=== PATIENT | female | born 2000 | race Caucasian/White ===

== ENCOUNTER 2020-09-28 12:19 | Day surgery (SDC) | payer OTHER ==
[~2020-09-28] VITALS: Ht 157.5 cm; Wt 62.8 kg
--- NOTE | 2020-09-28 12:55 | NUR ---
WELL TREATMENT OFFSIDER: GIAN COLLECTED AND SENT TO LAB.
[2020-09-28 12:57] LABS: BASOPHILS % (AUTO) 1 % (0-1); EOSINOPHILS % (AUTO) 1 % (1-7); LYMPHOCYTES % (AUTO) 22 % (22-44); MEAN CORPUSCULAR HEMOGLOBIN 33.7 pg (27.0-34.8); MEAN CORPUSCULAR HGB CONC 34.5 g/dL (32.4-35.8); MEAN PLATELET VOLUME 8.3 fL (7.4-10.4); MONOCYTES % (AUTO) 10 % (2-9); NEUTROPHILS % (AUTO) 66 % (42-75); PLATELET COUNT 261 x10^3/uL (130-400); RED CELL DISTRIBUTION WIDTH 13.4 % (9.6-15.2)
[2020-09-28] MEDS ORDERED: SODIUM CHLORIDE FLUSH 10ML SYR IVF ONE (13:00)
[2020-09-28 13:01] LABS: MD NO
[2020-09-28 13:04] LABS: ANION GAP 4 mmol/L (5-15); CALCIUM 9.7 mg/dL (8.5-10.1); CHLORIDE 107 mmol/L (98-107); CREATININE 0.77 mg/dL (0.55-1.02)
[2020-09-28 13:09] LABS: ALANINE AMINOTRANSFERASE 50 U/L (12-78); ALBUMIN 4.5 g/dL (3.4-5.0); ALKALINE PHOSPHATASE 88 U/L (45-117); BILIRUBIN,TOTAL 0.7 mg/dL (0.2-1.0); TOTAL PROTEIN 8.2 g/dL (6.4-8.2)
[2020-09-28 13:12] LABS: MICROSCOPIC INDICATED
[2020-09-28] MEDS ORDERED: OMNIPAQUE 350 MG/ML, 100ML BOTTLE ONE (14:34)
[2020-09-28] MEDS ORDERED: MORPHINE SULFATE 4 MG/ML, 1ML ONE (14:53)
[2020-09-28] MEDS ORDERED: ONDANSETRON 2MG/ML, 2ML ONE ×2 (14:53→16:50)
--- NOTE | 2020-09-28 14:55 | NUR ---
PT MEDICATED PER EMAR.
[2020-09-28] MEDS ORDERED: MORPHINE SULFATE 4 MG/ML, 1ML IVPush PRN (15:00)
[2020-09-28] MEDS ORDERED: ONDANSETRON 2MG/ML, 2ML IVPush ONE (15:00)
[2020-09-28] MEDS ORDERED: SERT100T PO (15:02)
[2020-09-28] MEDS ORDERED: BUPR-173 PO (15:02)
--- NOTE | 2020-09-28 15:15 | NUR ---
PT UPDATED ON POC FOR GEN SURG CONSULT. RESTING ON [employer] W/ CALL LIGHT IN REACH AND SIDE RAILS UPX2. RESP EVEN AND UNLABORED, ANGEL.
--- NOTE | 2020-09-28 15:27 | NUR ---
REPORT GIVEN TO SUE SAGE.
[2020-09-28 15:44] VITALS: BP 162/100
--- NOTE | 2020-09-28 15:52 | NUR ---
CEFOTAN ORDERED FROM PHARMACY.
[2020-09-28] MEDS ORDERED: SODIUM CHLORIDE 0.9% 1,000ML IVBOLUS ONE (16:00)
[2020-09-28] MEDS ORDERED: CEFOTETAN PMX 1GM/50ML 50 ML IVPB ONE (16:00)
[2020-09-28] MEDS ORDERED: BUPIVACAINE/PF 0.5% ONE (16:04)
[2020-09-28] MEDS ORDERED: EPINEPHRINE 1 MG/ML, 1ML ONE (16:05)
--- NOTE | 2020-09-28 16:05 | NUR ---
ERMD AT BEDSIDE TO DISCUSS POC, PATIENT MEDICATED PER eMAR.
--- NOTE | 2020-09-28 16:12 | NUR ---
COVID SWAB COLLECTED AND WALKED TO LAB.
--- NOTE | 2020-09-28 16:13 | NUR ---
REPORT GIVEN TO CHU DENTON IN PRE-OP FOR TRANSFER OF PATIENT CARE.
[2020-09-28] MEDS ORDERED: CHLORHEXIDINE 15 ML UDC ONE (16:17)
--- NOTE | 2020-09-28 16:23 | NUR ---
PATIENT TRANSFERRED IN STABLE CONDITION VIA GURNEY WITH OR STAFF TO OR FOR SURGERY.
[2020-09-28] MEDS ORDERED: BUPIVACAINE/PF 0.25% ONE (16:26)
[2020-09-28] MEDS ORDERED: ACETAMINOPHEN 325 MG TABLET PO PRN (16:30)
[2020-09-28] MEDS ORDERED: PROMETHAZINE 25 MG/ML, 1ML IVPush PRN (16:30)
[2020-09-28] MEDS ORDERED: HYDROmorphone 1 MG/ML, 1ML INJ IVPush PRN (16:30)
[2020-09-28] MEDS ORDERED: hydrALAzine 20 MG/ML, 1ML IV PRN (16:30)
[2020-09-28] MEDS ORDERED: ONDANSETRON 2MG/ML, 2ML IVPush PRN (16:30)
[2020-09-28] MEDS ORDERED: EPHEDRINE 50 MG/ML, 1ML IVPush PRN (16:30)
[2020-09-28] MEDS ORDERED: FENTANYL PF 100 MCG/2ML IV PRN (16:30)
[2020-09-28] MEDS ORDERED: OXYcodone 5 MG/5 ML ORAL.SOL UDC PO PRN (16:30)
[2020-09-28] MEDS ORDERED: LABETALOL 5MG/ML, 20ML IV PRN (16:30)
[2020-09-28] MEDS ORDERED: CEFOTETAN 2 GM ONE (16:50)
[2020-09-28] MEDS ORDERED: GLYCOPYRROLATE 0.2MG/1ML, 5ML ONE (16:50)
[2020-09-28] MEDS ORDERED: ROCURONIUM 10 MG/ML,10ML ONE (16:50)
[2020-09-28] MEDS ORDERED: NEOSTIGMINE 1 MG/ML, 10ML ONE (16:50)
[2020-09-28] MEDS ORDERED: DEXAMETHASONE 4 MG/ML, 1ML ONE (16:50)
[2020-09-28] MEDS ORDERED: SUGAMMADEX 200 MG/2 ML IVPush ONE (16:50)
[2020-09-28] MEDS ORDERED: PROPOFOL 10 MG/ML, 20ML ONE (16:50)
[2020-09-28] MEDS ORDERED: HYDR-2214 PO (17:13)
[2020-09-28] MEDS ORDERED: MEPERIDINE/PF 25MG/ML,1ML ONE (17:20)
[2020-09-28] MEDS ORDERED: MEPERIDINE/PF 25MG/0.5ML IVPush PRN (17:30)
== END 2020-09-28 19:00 | disposition home or self-care (01) ==
LOC: ED 15:31 → OUT 17:00 → ED 19:00
PROVIDERS: ATTEND Emergency Medicine
DX: K35.80 Unspecified acute appendicitis (principal); F32.9 Major depressive disorder, single episode, unspecified; Z20.822 Contact with and (suspected) exposure to COVID-19; Z79.899 Other long term (current) drug therapy; Z87.442 Personal history of urinary calculi
CPT/HCPCS: 36415; 44970; 74177; 80053; 81001; 84703; 85025; 87086; 87635; 88304; 96365; 96375; 99285; J0171; J1100; J2175; J2270; J2405; J2704; J2710; J7030; Q9967

== ENCOUNTER 2020-09-29 14:55 | Emergency (ER) | payer OTHER ==
[~2020-09-29] VITALS: Ht 157.5 cm; Wt 63.7 kg
[~2020-09-29 14:55] MED LIST: BUPR-173 PO; HYDR-2214 PO; SERT100T PO
--- NOTE | 2020-09-29 15:28 | NUR ---
PATIENT WALKED BACK FROM TRIAGE WITH CHIEF C/O POST-OP PAIN. PATIENT HAD APPENDECTOMY YESTERDAY, HAS BEEN ALTERNATING BETWEEN PRESCRIBED PAIN MEDICATION NORCO AND IBUPROFEN WITH NO RELIEF. PATIENT WAS ADVISED BY SURGEON'S OFFICE TO COME TO ED. 3 STAB SITES NOTED TO ABD, NO SIGNS OF INFECTION. PATIENT CONNECTED TO MONITOR, HR 110, OTHER VSS, CALL LIGHT WITHIN REACH.
[2020-09-29] MEDS ORDERED: SODIUM CHLORIDE FLUSH 10ML SYR IVF ONE (15:30)
[2020-09-29] MEDS ORDERED: SODIUM CHLORIDE 0.9% 1,000ML IVBOLUS ONE (15:30)
--- NOTE | 2020-09-29 15:37 | NUR ---
20 GAUGE IV STARTED RIGHT AC, BLOOD COLLECTED, LABELLED AND SENT TO LAB, [facility]REJO.
[2020-09-29] MEDS ORDERED: ONDANSETRON 2MG/ML, 2ML ONE (15:49)
[2020-09-29] MEDS ORDERED: HYDROmorphone 1 MG/ML, 1ML INJ ONE (15:49)
[2020-09-29 15:53] LABS: BASOPHILS % (AUTO) 0 % (0-1); EOSINOPHILS % (AUTO) 0 % (1-7); LYMPHOCYTES % (AUTO) 17 % (22-44); MEAN CORPUSCULAR HEMOGLOBIN 33.6 pg (27.0-34.8); MEAN CORPUSCULAR HGB CONC 34.2 g/dL (32.4-35.8); MEAN PLATELET VOLUME 8.5 fL (7.4-10.4); MONOCYTES % (AUTO) 10 % (2-9); NEUTROPHILS % (AUTO) 73 % (42-75); PLATELET COUNT 244 x10^3/uL (130-400); RED BLOOD COUNT 4.27 x10^6/uL (3.82-5.3); RED CELL DISTRIBUTION WIDTH 13.4 % (9.6-15.2)
--- NOTE | 2020-09-29 15:53 | NUR ---
PATIENT TO IMAGING.
[2020-09-29 15:56] LABS: ALANINE AMINOTRANSFERASE 49 U/L (12-78); ANION GAP 9 mmol/L (5-15); CALCIUM 9.3 mg/dL (8.5-10.1); CHLORIDE 109 mmol/L (98-107); CREATININE 0.93 mg/dL (0.55-1.02); MD NO
[2020-09-29] MEDS ORDERED: MORPHINE SULFATE 4 MG/ML, 1ML IVPush PRN (16:00)
[2020-09-29] MEDS ORDERED: ONDANSETRON 2MG/ML, 2ML IVPush ONE (16:00)
[2020-09-29 16:01] LABS: ALKALINE PHOSPHATASE 75 U/L (45-117); BILIRUBIN,TOTAL 0.4 mg/dL (0.2-1.0); TOTAL PROTEIN 7.5 g/dL (6.4-8.2)
--- NOTE | 2020-09-29 16:01 | NUR ---
PATIENT BACK FROM IMAGING, AMBULATED TO BATHROOM WITH STEADY GAIT FOR URINE SAMPLE.
[2020-09-29] MEDS: HYDROmorphone 2 MG/ML, 1ML IVPush ONE (16:07)
--- NOTE | 2020-09-29 16:15 | NUR ---
PATIENT MEDICATED PER eMAR, URINE COLLECTED AND SENT TO LAB, CONNECTED TO MONITOR, VSS, CALL LIGHT WITHIN REACH.
[2020-09-29 16:27] LABS: MICROSCOPIC AUTO
[2020-09-29] MEDS ORDERED: KETOROLAC 30 MG/1 ML ONE (16:38)
[2020-09-29] MEDS ORDERED: OXYcodone/APAP 5/325MG TABLET ONE (16:39)
[2020-09-29 16:44] VITALS: BP 109/75
--- NOTE | 2020-09-29 16:50 | NUR ---
IV removed with tip intact. Patient given discharge instructions and they have confirmed that they understand the instructions. Patient ambulatory with steady gait. NAD, all questions answered appropriately, denies additional needs at this time. No personal belongings left in room after discharge.
[2020-09-29] MEDS ORDERED: KETOROLAC 30 MG/1 ML IVPush ONE (17:00)
[2020-09-29] MEDS ORDERED: OXYcodone/APAP 5/325MG TABLET PO ONE (17:00)
== END 2020-09-29 16:51 | disposition home or self-care (01) ==
LOC: ED 16:40
DX: R10.31 Right lower quadrant pain (principal); G89.18 Other acute postprocedural pain; Z90.89 Acquired absence of other organs; F17.200 Nicotine dependence, unspecified, uncomplicated
CPT/HCPCS: 36415; 74021; 80053; 81001; 83690; 84703; 85025; 87086; 96361; 96374; 96375; 99284; J1170; J1885; J2405; J7030

== ENCOUNTER 2020-09-30 14:56 | Emergency (ER) | payer OTHER ==
[~2020-09-30 14:56] MED LIST changes: +DEXAMETHASONE 4 MG/ML, 5ML ONE; +FENTANYL PF 100 MCG/2ML ONE; +GLYCOPYRROLATE 0.2MG/1ML, 5ML ONE; +KETOROLAC 30 MG/1 ML ONE; +MIDAZOLAM 1 MG/ML, 2ML ONE; +NEOSTIGMINE 1 MG/ML, 10ML ONE; +ONDANSETRON 2MG/ML, 2ML ONE; +PROPOFOL 10 MG/ML, 20ML ONE; +ROCURONIUM 10MG/ML,5ML ONE; +SUCCINYLCHOLINE 20 MG/ML, 10ML ONE; +SUGAMMADEX 200 MG/2 ML IVPush ONE
[2020-09-30] MEDS ORDERED: ONDANSETRON 2MG/ML, 2ML IVPush ONE (15:30)
[2020-09-30] MEDS ORDERED: MORPHINE SULFATE 4 MG/ML, 1ML IVPush PRN (15:30)
[2020-09-30] MEDS ORDERED: SODIUM CHLORIDE FLUSH 10ML SYR IVF ONE (15:30)
[2020-09-30] MEDS ORDERED: SODIUM CHLORIDE 0.9% 1,000ML IVBOLUS ONE (15:30)
--- NOTE | 2020-09-30 15:42 | NUR ---
SPRAGGER: PT TO ROOM FROM LOBBY
[2020-09-30 15:48] LABS: BASOPHILS % (AUTO) 0 % (0-1); EOSINOPHILS % (AUTO) 1 % (1-7); LYMPHOCYTES % (AUTO) 12 % (22-44); MEAN CORPUSCULAR HEMOGLOBIN 33.2 pg (27.0-34.8); MEAN CORPUSCULAR HGB CONC 33.8 g/dL (32.4-35.8); MEAN PLATELET VOLUME 8.4 fL (7.4-10.4); MONOCYTES % (AUTO) 9 % (2-9); NEUTROPHILS % (AUTO) 78 % (42-75); PLATELET COUNT 264 x10^3/uL (130-400); RED BLOOD COUNT 4.46 x10^6/uL (3.82-5.3); RED CELL DISTRIBUTION WIDTH 13.6 % (9.6-15.2)
[2020-09-30 15:49] LABS: MD NO
[2020-09-30 16:00] LABS: ANION GAP 7 mmol/L (5-15); CALCIUM 9.3 mg/dL (8.5-10.1); CHLORIDE 109 mmol/L (98-107)
[2020-09-30 16:01] LABS: ALANINE AMINOTRANSFERASE 51 U/L (12-78); ALBUMIN 4.3 g/dL (3.4-5.0)
[2020-09-30 16:05] LABS: ALKALINE PHOSPHATASE 84 U/L (45-117); BILIRUBIN,TOTAL 0.5 mg/dL (0.2-1.0); TOTAL PROTEIN 7.8 g/dL (6.4-8.2)
[2020-09-30] MEDS ORDERED: PROMETHAZINE 25 MG/ML, 1ML IM ONE (16:30)
[2020-09-30] MEDS ORDERED: PROMETHAZINE 25 MG/ML, 1ML ONE (16:30)
[2020-09-30] MEDS ORDERED: MORPHINE SULFATE 4 MG/ML, 1ML ONE (16:30)
--- NOTE | 2020-09-30 16:38 | NUR ---
PT S/P APPY ON 09/28, CONTINUED N/V. SEEN HERE IN ED YESTERDAY FOR SAME. NO IMPROVEMENT. PIV STARTED AND IVF INFUSING W/O DIFFICULTY. PT MED NOTED FOR PAIN AND N/V. CALL LIGHT W/I REACH, VSS
[2020-09-30 17:19] LABS: MICROSCOPIC NOT IND
--- NOTE | 2020-09-30 17:37 | NUR ---
n/v seems to be ressolved. ice chips and water at bedisde. Pt instructed to "go slow". ALL TESTS RESULTED AND CHART UP FOR RECHECK. PT AWARE.
[2020-09-30] MEDS ORDERED: KETOROLAC 30 MG/1 ML IVPush ONE (18:00)
[2020-09-30] MEDS ORDERED: PLEASE ENTER HEIGHT AND WEIGHT MC SCH (18:00)
--- NOTE | 2020-09-30 18:00 | NUR ---
PT TOLLERATING PO FLUIDS.
[2020-09-30 18:30] VITALS: BP 141/89
--- NOTE | 2020-09-30 18:31 | NUR ---
Patient/Caregiver given discharge instructions and they have confirmed that they understand the instructions. Patient ambulatory with steady gait.
== END 2020-09-30 18:32 | disposition home or self-care (01) ==
LOC: ED 15:45
DX: R11.2 Nausea with vomiting, unspecified (principal); R10.9 Unspecified abdominal pain; Z90.89 Acquired absence of other organs
CPT/HCPCS: 36415; 80053; 81003; 84703; 85025; 96361; 96372; 96374; 99284; J0330; J1100; J1885; J2250; J2270; J2405; J2550; J2704; J2710; J3010; J7030

== ENCOUNTER 2020-10-04 20:39 | Emergency (ER) | payer OTHER ==
[~2020-10-04] VITALS: Ht 157.5 cm; Wt 65.0 kg
[~2020-10-04 20:39] MED LIST changes: -DEXAMETHASONE 4 MG/ML, 5ML ONE; -FENTANYL PF 100 MCG/2ML ONE; -GLYCOPYRROLATE 0.2MG/1ML, 5ML ONE; -KETOROLAC 30 MG/1 ML ONE; -MIDAZOLAM 1 MG/ML, 2ML ONE; -NEOSTIGMINE 1 MG/ML, 10ML ONE; -ONDANSETRON 2MG/ML, 2ML ONE; -PROPOFOL 10 MG/ML, 20ML ONE; -ROCURONIUM 10MG/ML,5ML ONE; -SUCCINYLCHOLINE 20 MG/ML, 10ML ONE; -SUGAMMADEX 200 MG/2 ML IVPush ONE
[2020-10-04] MEDS ORDERED: DIPH,PERTUSS(ACELL),TET VAC/PF 0.5 ML IM-VACC ONE ×2 (21:00→21:22)
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
[2020-10-04] MEDS ORDERED: HYDROmorphone 1 MG/ML, 1ML INJ ONE (21:22)
[2020-10-04] MEDS ORDERED: HYDROmorphone 1 MG/ML, 1ML INJ IM ONE (21:30)
[2020-10-04 21:48] LABS: BASOPHILS % (AUTO) 0 % (0-1); EOSINOPHILS % (AUTO) 0 % (1-7); LYMPHOCYTES % (AUTO) 15 % (22-44); MEAN CORPUSCULAR HEMOGLOBIN 33.3 pg (27.0-34.8); MEAN CORPUSCULAR HGB CONC 34.4 g/dL (32.4-35.8); MEAN PLATELET VOLUME 8.2 fL (7.4-10.4); MONOCYTES % (AUTO) 7 % (2-9); NEUTROPHILS % (AUTO) 78 % (42-75); PLATELET COUNT 240 x10^3/uL (130-400); RED BLOOD COUNT 4.29 x10^6/uL (3.82-5.3); RED CELL DISTRIBUTION WIDTH 13.3 % (9.6-15.2)
[2020-10-04 21:57] LABS: ALANINE AMINOTRANSFERASE 36 U/L (12-78); ALBUMIN 3.8 g/dL (3.4-5.0); ANION GAP 7 mmol/L (5-15); CALCIUM 9.1 mg/dL (8.5-10.1); CHLORIDE 105 mmol/L (98-107); CREATININE 0.79 mg/dL (0.55-1.02)
[2020-10-04 22:02] LABS: ALKALINE PHOSPHATASE 78 U/L (45-117); BILIRUBIN,TOTAL 0.3 mg/dL (0.2-1.0); TOTAL PROTEIN 7.3 g/dL (6.4-8.2)
[2020-10-04 22:46] VITALS: BP 135/95
== END 2020-10-04 22:57 | disposition home or self-care (01) ==
LOC: ED 21:18
DX: S41.151A Open bite of right upper arm, initial encounter (principal); R10.32 Left lower quadrant pain; R00.0 Tachycardia, unspecified; Z90.89 Acquired absence of other organs; Y04.0XXA Assault by unarmed brawl or fight, initial encounter; Y93.89 Activity, other specified; Y92.89 Other specified places as the place of occurrence of the external cause; Y99.8 Other external cause status
CPT/HCPCS: 36415; 80053; 83690; 84703; 85025; 90471; 90715; 96372; 99284; J1170

== ENCOUNTER 2020-12-21 11:39 | Emergency (ER) | payer OTHER ==
[~2020-12-21] VITALS: Ht 157.5 cm; Wt 61.7 kg
[2020-12-21 13:05] LABS: BASOPHILS % (AUTO) 0 % (0-1); EOSINOPHILS % (AUTO) 1 % (1-7); LYMPHOCYTES % (AUTO) 13 % (22-44); MEAN CORPUSCULAR HEMOGLOBIN 33.6 pg (27.0-34.8); MEAN CORPUSCULAR HGB CONC 34.5 g/dL (32.4-35.8); MEAN PLATELET VOLUME 8.6 fL (7.4-10.4); MONOCYTES % (AUTO) 12 % (2-9); NEUTROPHILS % (AUTO) 74 % (42-75); PLATELET COUNT 199 x10^3/uL (130-400); RED BLOOD COUNT 3.98 x10^6/uL (3.82-5.3); RED CELL DISTRIBUTION WIDTH 13.2 % (9.6-15.2)
--- NOTE | 2020-12-21 13:09 | NUR ---
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
[2020-12-21 13:16] VITALS: BP 127/74
[2020-12-21 13:17] LABS: ALBUMIN 3.6 g/dL (3.4-5.0); ANION GAP 6 mmol/L (5-15); CALCIUM 9.2 mg/dL (8.5-10.1); CHLORIDE 107 mmol/L (98-107)
--- NOTE | 2020-12-21 13:22 | NUR ---
PT CHANGED INTO GURNEY, ON SPO2 AND BP CUFF. NAD NOTED AT THIS TIME. PT REPORTS DX WITH UTI YESTERDAY AND INSTRUCTED TO COME TO ED IF PAIN WORSENED DUE TO HX OF KIDNEY STONES. PT REPORTS INCREASED FLANK PAIN TODAY. IV STARTED, UA SENT TO LAB. AWAITING ERMD EVALUATION.
[2020-12-21 13:25] LABS: ALANINE AMINOTRANSFERASE 50 U/L (12-78); ALKALINE PHOSPHATASE 78 U/L (45-117); BILIRUBIN,TOTAL 0.6 mg/dL (0.2-1.0); CREATININE 0.56 mg/dL (0.55-1.02); TOTAL PROTEIN 7.4 g/dL (6.4-8.2)
[2020-12-21 13:53] LABS: MICROSCOPIC INDICATED
--- NOTE | 2020-12-21 14:37 | NUR ---
PT RESTING IN BED, NAD NOTED AT THIS TIME. AWAITING ERMD REASSESSMENT. SIGNIFICANT OTHER AT BEDSIDE. RESPIRATIONS EVEN AND UNLABORED ON RA.
== END 2020-12-21 16:25 | disposition home or self-care (01) ==
LOC: ED 14:40
DX: N30.00 Acute cystitis without hematuria (principal); Z87.442 Personal history of urinary calculi
CPT/HCPCS: 36415; 80053; 81001; 83690; 84703; 85025; 87077; 87086; 87186; 99283